=== PATIENT | female | born 1965 | race Caucasian/White ===

== ENCOUNTER 2023-08-27 15:43 | Emergency (ER) | payer SELFPAY ==
[~2023-08-27] VITALS: Ht 160 cm; Wt 103.2 kg
[2023-08-27 15:54] VITALS: TEMP 98
[2023-08-27] MEDS ORDERED: Iohexol 300 - 100 ML VIAL IV ONE (16:09)
[2023-08-27] MEDS ORDERED: NS 100 ML IV ONE (16:09)
[2023-08-27 16:31] LABS: BASO # 0.1 K/mm3 (0.0-0.2); BASO % 0.5 % (0.0-2.0); EOS # 0.1 K/mm3 (0.0-0.7); EOS % 0.5 % (0.0-4.0); GRAN # 10.8 K/mm3 (1.4-6.5); GRAN % 84.3 % (42.2-75.2); HEMATOCRIT 37.4 % (37.0-47.0); HEMOGLOBIN 11.9 g/dl (12.5-16.0); LYMPH # 1.2 K/mm3 (1.2-3.4); LYMPH % 9.4 % (20.0-51.0); MEAN CELL VOLUME 89 fl (80.0-100.0); MEAN CORPUSCULAR HEMOGLOBIN 28 pg (27-31); MEAN CORPUSCULAR HGB CONC 32 g/dl (33.0-37.0); MEAN PLATELET VOLUME 12.5 fl (7.4-10.4); MONO # 0.6 K/mm3 (0.1-0.6); MONO % 4.8 % (1.7-9.3); PLATELET COUNT 214 K/mm3 (130-400); RED BLOOD COUNT 4.19 M/mm3 (4.10-5.30); REDCELL DISTRIBUTION WIDTH-CV 13.7 % (11.5-14.5)
[2023-08-27 16:35] LABS: PROTHROMBIN TIME 11.1 SECONDS (9.7-12.8)
[2023-08-27] MEDS ORDERED: NORCO 325 MG-51 TAB PO (16:43)
[2023-08-27] MEDS ORDERED: Home oxyCODONE/Acetaminophen 5/325 MG #4 TAB/PACK PO ONE (16:45)
[2023-08-27] MEDS ORDERED: HYDROmorphone 0.5 MG/0.5 ML SYRINGE IV ONE (16:45)
[2023-08-27 16:52] LABS: ALANINE AMINOTRANSFERASE 45 U/L (0-55); ALBUMIN 3.5 g/dL (3.5-5.0); ALKALINE PHOSPHATASE 61 U/L (40-150); ANION GAP 15 mmol/L (7-16); AST,SGOT 29 U/L (5-34); BILIRUBIN,TOTAL 0.3 mg/dL (0.2-1.2); BLOOD UREA NITROGEN 21 mg/dL (10-20); CALCIUM 9.4 mg/dL (8.4-10.2); CHLORIDE 104 mEq/L (98-107); CREATININE, serum 0.81 mg/dL (0.57-1.11); GLUCOSE 163 mg/dL (70-99); POTASSIUM 4.3 mEq/L (3.5-4.5); SODIUM 139 mEq/L (136-145); TOTAL PROTEIN 6.5 g/dl (6.2-8.1)
[2023-08-27 16:53] LABS: ALCOHOL(ethanol),MEDICAL < 10 mg/dL (0-10)
[2023-08-27] MEDS ORDERED: DOXYCYCLINE 10100 MG PO (18:20)
[2023-08-27] MEDS ORDERED: Doxycycline Monohydrate 100 MG CAP PO ONE (18:30)
[2023-08-27 18:47] VITALS: BP 132/67; PULSE 85
== END 2023-08-27 18:49 | disposition home or self-care (01) ==
LOC: COL.ER 15:43
PROVIDERS: Physician Assistant
DX: S06.9X1A Unspecified intracranial injury with loss of consciousness of 30 minutes or less, initial encounter (principal); S42.202A Unspecified fracture of upper end of left humerus, initial encounter for closed fracture; S51.812A Laceration without foreign body of left forearm, initial encounter; S01.81XA Laceration without foreign body of other part of head, initial encounter; E11.9 Type 2 diabetes mellitus without complications; M54.2 Cervicalgia; Z79.4 Long term (current) use of insulin; W10.8XXA Fall (on) (from) other stairs and steps, initial encounter
CPT/HCPCS: J1170; Q9967

== ENCOUNTER 2023-08-31 05:59 | Day surgery (SDC) | payer SELFPAY ==
[~2023-08-31] VITALS: Ht 162.6 cm; Wt 103.6 kg
[~2023-08-31 05:59] MED LIST: DOXYCYCLINE 10100 MG PO; NORCO 325 MG-51 TAB PO; NS 1,000 ML IV SCH
[2023-08-31] MEDS ORDERED: NS 10 ML IV ONE (06:57)
[2023-08-31] MEDS ORDERED: Ketorolac 30 MG/ML VIAL ONE (06:57)
[2023-08-31] MEDS ORDERED: dexAMETHasone 10 MG/ML VIAL ONE (06:57)
[2023-08-31] MEDS ORDERED: fentaNYL 50 MCG/ML 5 ML VIAL ONE (06:57)
[2023-08-31] MEDS ORDERED: Lidocaine PF 2% (20 MG/ML) 5 ML VIAL ONE (06:57)
[2023-08-31] MEDS ORDERED: Ondansetron 4 MG/2 ML VIAL ONE (06:57)
[2023-08-31] MEDS ORDERED: Rocuronium 50 MG/5 ML Multi-Dose VIAL ONE (06:58)
[2023-08-31] MEDS ORDERED: droPERidol 2.5 MG/ML 2 ML VIAL IV PRN (07:15)
[2023-08-31] MEDS ORDERED: fentaNYL 50 MCG/ML 1 ML SYRINGE/VIAL [PACU/SDC ONLY] IV PRN (07:15)
[2023-08-31] MEDS ORDERED: hydrALAZINE 20 MG/ML 1 ML VIAL IV PRN (07:15)
[2023-08-31] MEDS ORDERED: Ondansetron 4 MG/2 ML VIAL IV PRN (07:15)
[2023-08-31] MEDS ORDERED: HYDROmorphone 1 MG/1 ML SYRINGE [PACU/SDC ONLY] IV PRN (07:15)
[2023-08-31] MEDS ORDERED: Succinylcholine PF 200 MG/10 ML SYRINGE IV ONE (07:34)
[2023-08-31] MEDS ORDERED: ePHEDrine 50 MG/ML VIAL ONE (07:47)
[2023-08-31 08:08] VITALS: BP 128/63; PULSE 76; TEMP 98.1
[2023-08-31] MEDS ORDERED: INSULIN AS100 UNIT/4 SQ (08:20)
[2023-08-31] MEDS ORDERED: PRINZIDE 12.5 M1 TA1 PO (08:20)
[2023-08-31] MEDS ORDERED: GLUCOTROL10 MG PO (08:21)
[2023-08-31] MEDS ORDERED: GLUCOPHAGE500 MG/TAB PO (08:22)
[2023-08-31] MEDS ORDERED: PRAVACHOL 20MG20 MG PO (08:22)
[2023-08-31] MEDS ORDERED: CANA100T PO (08:22)
[2023-08-31] MEDS ORDERED: ASPIRIN 81M81 MG/TA2 PO (08:23)
[2023-08-31] MEDS ORDERED: MASON NATURAL2000 IU PO (08:23)
[2023-08-31] MEDS ORDERED: NORCO 325 MG-7.1 TAB PO (08:55)
[2023-08-31] MEDS ORDERED: oxyCODONE/Acetaminophen 5-325 MG TAB PO PRN (09:00)
[2023-08-31] MEDS ORDERED: Morphine 4 MG/ML VIAL IV PRN (09:00)
[2023-08-31] MEDS ORDERED: Promethazine 25 MG TAB PO PRN (09:00)
[2023-08-31] MEDS ORDERED: HYDROcodone/Acetaminophen 7.5-325 MG TAB PO PRN (09:00)
[2023-08-31 10:05] VITALS: BP 127/47; PULSE 94; TEMP 97.9
[2023-08-31 10:20] VITALS: BP 128/49; PULSE 90
[2023-08-31 10:35] VITALS: BP 125/43; PULSE 90
[2023-08-31 10:50] VITALS: BP 131/45; PULSE 88
[2023-08-31 11:20] VITALS: BP 132/52; PULSE 86
--- NOTE | 2023-08-31 11:30 | NUR ---
1005 RETURNS TO ROOM 6 PER CART WITH HOB ELEVATED 45 DEGREES. DROWSY, AROUSES SPONTANEOUSLY. RESP UNLABORED. O2 AT 2L/NC FROM PACU FOLOWING IV MED ADMINISTRATION. AQUACELL DRESSING LEFT UPPER ARM CLEAN DRY AND INTACT. ABDUCTOR SLING/PILLOW IN PLACE LEFT UPPER EXTREMITY. FINGERS WARM, BRISK CAP REFILL, RADIAL PULSE EASILY PALPABLE. PATIENT MOVES FINGERS ON REQUEST. REPORTS COMFORT AT THIS TIME. DAUGHTER IN ROOM. CALL LIGHT AT SIDE. 1020 DOZING, AROUSES EASILY. 1035 LESS DROWSY, CONVERSES WITH DAUGHTER. O2 OFF 1050 HOB ELEVATED 60 DEGREES. TOLERATES PO WATER AND APPLESAUCE WITHOUT NAUSEA. EXPRESSES COMFORT 1100 DISCHARGE ISTRUCTIONS REVIEWED. DAUGHTER TRANSLATES SOME FOR MOTHER, HOWEVER, PATIENT CONVERSES AND EXPRESSES UNDERSTANDING WITH THIS NURSE. COPY OF INSTRUCTIONS PROVIDED IN DISCHARGE FOLDER 1115 ASSISTED TO SITTING POSITION ON EDGE OF CART. DRESSES WITH ASSIST. ABDUCTION SLING/PILLOW SECURED. NEURO/CIRC CHECKS LEFT UPPER EXTREMITY INTACT. PATIENT REPORTS MILD DISCOMFORT.
== END 2023-08-31 11:30 | disposition home or self-care (01) ==
LOC: SDCO 05:59
DX: S42.202A Unspecified fracture of upper end of left humerus, initial encounter for closed fracture (principal); I10 Essential (primary) hypertension; E11.9 Type 2 diabetes mellitus without complications; Z79.84 Long term (current) use of oral hypoglycemic drugs; Z79.4 Long term (current) use of insulin; W10.9XXA Fall (on) (from) unspecified stairs and steps, initial encounter
CPT/HCPCS: A4619; A6197; C1713; J0665; J0690; J1100; J1170; J1885; J2405; J2704; J2765; J3010; J7030